=== PATIENT | female | born 1995 | race Hispanic/Latino ===

== ENCOUNTER 2018-01-26 20:01 | Emergency (ER) | payer OTHER ==
[~2018-01-26] VITALS: Ht 154.9 cm; Wt 72.6 kg
[2018-01-26] MEDS ORDERED: ACETAMINOPHEN 325 MG/10 ML UDC PO STA (20:28)
[2018-01-26] MEDS ORDERED: AZITHROMYCIN250 MG PO (22:35)
[2018-01-26 22:48] VITALS: BP 112/74
== END 2018-01-26 23:13 | disposition home or self-care (01) ==
LOC: ER 20:01
DX: R50.9 Fever, unspecified (principal); J02.0 Streptococcal pharyngitis
CPT/HCPCS: 99283